=== PATIENT | female | born 1990 | race Caucasian/White ===

== ENCOUNTER 2017-03-26 16:02 | Emergency (ER) | payer SELFPAY ==
--- NOTE | ~2017-03-26 | ER ---
PATIENT'S NAME: ANGIE CHAUDHRY [facility] AGE: 27 Y [address] ROOM: [place] [id number] LOCATION: [facility] ADMIT DATE: 03/26/2017 ER/Outpatient Report DISCHARGE DATE: 03/26/2017 FAMILY PHYSICIAN: PHYSICIAN, NO ATTENDING PHYSICIAN: Cary Azevedo Time of Arrival: 1612 hours. Time of Evaluation: 1622 hours. CHIEF COMPLAINT: Vaginal bleeding. HISTORY OF PRESENT ILLNESS: The patient reports that she had a normal period a week ago and the bleeding had stopped; and then Tuesday, March 23, she started bleeding again. She states she has some low abdominal cramping off and on. States that the period has a little bit heavier than the last time. She has had a few small clots. She is currently not on any control and she is sexually active. She states that she has not had any urinary frequency or discomfort. Had a normal bowel movement today. Reports that she has been under a lot of stress. She is here in [place] to help a friend. She normally lives in [place]. ALLERGIES: SHE HAS NO KNOWN ALLERGIES. CURRENT MEDICATIONS: On her chart and reviewed by me. PAST MEDICAL HISTORY: Benign. She is a 5, para 5. SURGERIES: Negative surgeries. SOCIAL HISTORY: Smokes half a pack per day and has for the last 17 years. Drinks alcohol on a social basis. Denies use of street drugs. REVIEW OF SYSTEMS: All negative other than those mentioned in the HPI. PHYSICAL EXAMINATION: VITAL SIGNS: She weighed 87.7 kg, blood pressure is 122/82, pulse of 105, respirations 16, temperature of 97.4, and O2 saturations 98% on room air. GENERAL: She is awake, alert, and oriented x4. PATIENT'S NAME: ANGIE CHAUDHRY [facility] AGE: 27 Y [address] ROOM: [place] [address] LOCATION: [facility] ADMIT DATE: 03/26/2017 ER/Outpatient Report DISCHARGE DATE: 03/26/2017 FAMILY PHYSICIAN: PHYSICIAN, NO ATTENDING PHYSICIAN: Cary Azevedo SKIN: [place], warm, and dry. RESPIRATIONS: Even and nonlabored. Lung sounds are clear throughout. HEART: Regular rate and rhythm. ABDOMEN: Soft and nondistended. Bowel sounds are present. LABORATORY DATA AND X-RAYS: Lab work was drawn. CBC is within normal limits. Chem panel is within normal limits. Beta HCG is negative. IMPRESSION: Dysmenorrhea. PLAN: Home. Rest. Fluids. If symptoms persist, she is to follow up with her primary provider. She was given the names of the different providers here in town. She verbalized understanding. OSKAR GARCIA APRN FOR MD MELLISA JAFFE/latisha /[id number] d: 03/26/172157 t: 04/02/17 2019, OUTPATIENT REPORT
[~2017-03-26 16:02] MED LIST: ACETAMINOPHEN325 MG PO; PRENATAL 1+1)(P1 TAB PO
[2017-03-26 16:50] LABS: BASOPHIL # 0.1 K/uL (0.0-0.2); BASOPHIL % 0.6 %; EOSINOPHIL # 0.5 K/uL (0.0-0.5); EOSINOPHIL % 4.6 %; HEMATOCRIT 45.3 % (33.0-46.0); HEMOGLOBIN 15.9 g/dL (11.0-15.0); IMMATURE GRANULOCYTE % 0.3 %; LYMPHOCYTE # 3.9 K/uL (0.8-4.0); LYMPHOCYTE % 33.3 %; MCH 30.2 pg (27.0-34.0); MCHC 35.1 gm/dL (32.0-36.5); MONOCYTE # 0.8 K/uL (0.0-1.0); MONOCYTE % 6.6 %; MPV 11.3 fl (9.4-12.4); NEUTROPHIL # (ANC) 6.4 K/uL (1.8-7.8); NEUTROPHIL % 54.6 %; NRBC % 0 /100WBC (0-0.00); PLATELET COUNT 250 K/uL (150-450); RBC 5.27 M/uL (3.50-5.00); WBC 11.8 K/uL (4.0-11.0)
[2017-03-26 17:08] LABS: ALBUMIN 3.8 gm/dL (3.5-5.0); ALK PHOS 65 IU/L (33-138); ALT 39 IU/L (12-78); ANION GAP 10.6 (10.0-19.0); AST 17 IU/L (10-40); BLOOD UREA NITROGEN 14 mg/dL (6-24); CALCIUM 9.1 mg/dL (8.5-10.5); CHLORIDE 108 mMol/L (96-110); CO2 25 mMol/L (22-32); CREATININE 0.8 mg/dL (0.5-1.1); ESTIMATED GFR (MDRD EQUATION) > 60; POTASSIUM 3.6 mMol/L (3.7-5.1); SODIUM 140 mMol/L (135-145); TOTAL BILIRUBIN 0.4 mg/dL (0.0-1.5); TOTAL PROTEIN 7.5 g/dL (6.0-8.4)
== END 2017-03-26 17:26 | disposition disaster alternative care site (69) ==
LOC: GMED 16:02
PROVIDERS: Nurse Practitioner Family
DX: N94.6 Dysmenorrhea, unspecified (principal); F17.210 Nicotine dependence, cigarettes, uncomplicated

== ENCOUNTER 2017-04-10 17:22 | Emergency (ER) | payer SELFPAY ==
--- NOTE | ~2017-04-10 | ER ---
[facility]GE[facility] 27 Y [address] ROOM: [place] [address] LOCATION: [facility] ADMIT DATE: 04/10/2017 ER/Outpatient Report DISCHARGE DATE: 04/10/2017 FAMILY PHYSICIAN: PHYSICIAN, NO ATTENDING PHYSICIAN: Gallito Robles TIME SEEN: 1815 hours. CHIEF COMPLAINT: Left eye irritation. HISTORY OF PRESENT ILLNESS: The patient is a 27-year-old female, who started noticing some left eye pain yesterday. She thought maybe she scratched her eye. She denies any headache, some discharge, has had some mild photophobia. ALLERGIES: NONE. HOME MEDICATIONS: None. PAST MEDICAL HISTORY: Includes previous corneal abrasion that happened last year. PAST SURGICAL HISTORY: None. SOCIAL HISTORY: Smoker half pack a day. No alcohol. REVIEW OF SYSTEMS: GENERAL: Health good. HEAD AND EENT: Includes left eye irritation. She denies use of contacts. She has had no discharge from her left eye. OBJECTIVE FINDINGS: VITAL SIGNS: Blood pressure 117/70, her temperature is 98.2, respiratory rate 16, pulse 85, O2 sats 97% on room air. GENERAL APPEARANCE: Alert. No obvious distress. HEENT: On exam, left eye shows some scleral inflammation. Pupil appeared reactive. There was no visible foreign body. Fluorescein stain was positive for an abrasion at approximately 6 o'clock. [facility] AGE: 27 Y [address] ROOM: [place] [address] LOCATION: [facility] ADMIT DATE: 04/10/2017 ER/Outpatient Report DISCHARGE DATE: 04/10/2017 FAMILY PHYSICIAN: PHYSICIAN, NO ATTENDING PHYSICIAN: Gallito oRbles ASSESSMENT: Corneal abrasion. PLAN: Tobrex ophthalmic drops 2 drops every 3 to 4 hours. Ibuprofen for pain. Follow up with payroll benefits clerk, her eye doctor within the next 24 to 48 hours. The patient verbalized understanding of her take-home instructions. RIKA HCU DO SWJ/renatol /[id number] d: 04/11/17 0121 t: 04/15/17 1213, OUTPATIENT REPORT
== END 2017-04-10 18:27 | disposition disaster alternative care site (69) ==
LOC: GMED 17:22
DX: S05.02XA Injury of conjunctiva and corneal abrasion without foreign body, left eye, initial encounter (principal); F17.210 Nicotine dependence, cigarettes, uncomplicated; X58.XXXA Exposure to other specified factors, initial encounter